=== PATIENT | female | born 1995 | race Caucasian/White ===

== ENCOUNTER 2018-08-25 09:31 | Emergency (ER) | payer OTHER ==
[2018-08-25 09:50] VITALS: RESP 16
[2018-08-25] MEDS ORDERED: SODIUM CHLORIDE 0.9% 1,000 ML IV STA ×2 (10:07→14:02)
[2018-08-25] MEDS ORDERED: ONDANSETRON 4 MG/2 ML VIAL IVP STA (10:07)
[2018-08-25] MEDS ORDERED: KETOROLAC 30 MG/ML 1 ML VIAL IVP STA (10:07)
[2018-08-25] MEDS ORDERED: FAMOTIDINE 20 MG/2 ML VIAL IV STA (10:11)
--- NOTE | 2018-08-25 10:27 | ED ---
Abdominal Pain HPI - General Chief Complaint: Abdominal Pain Stated Complaint: Abd Pain Time Seen by Provider: 08/25/18 09:55 Source: patient Mode of arrival: wheelchair Limitations: no limitations - History of Present Illness Initial Comments: Patient is a 23-year-old female presenting to the emergency department with severe epigastric abdominal pain 9 days. Patient states she went to another ER a few days ago and had a CT scan and ultrasound performed and states there was no acute abnormalities other than this is likely gastritis. Patient was given Carafate to help with symptoms. Patient states it helped yesterday but today it is not helping with the pain. Patient states she has been nauseous and vomiting for the last 9 days and not able to eat anything. Patient states she ate a little bit yesterday as she felt better but then this morning her pain is worse. Patient states she has had GI issues for the last 2 years with stomach pains and diarrhea. Patient states she has an appointment with the GI doctor tomorrow. Patient states she has had one , no other abdominal surgeries. Patient denies urinary complaints, fever, chills, chest pain. No other complaints at this time. - Related Data Previous Rx's Medication Instructions Recorded Lidocaine Viscous 2% [Xylocaine 5 ml PO Q4HR PRN #100 ml 08/25/18 Viscous] Metoclopramide [Reglan] 10 mg PO TID PRN #15 tab 08/25/18 Allergies Allergy/AdvReac Type Severity Reaction Status Date / Time No Known Allergies Allergy Verified 08/25/18 09:51 Review of Systems ROS Statement: Those systems with pertinent positive or pertinent negative responses have been documented in the HPI. ROS Other: All systems not noted in ROS Statement are negative. Past Medical History Additional Past Medical History / Comment(s): gastritis History of Any Multi-Drug Resistant Organisms: None Reported Past Surgical History: Tonsillectomy Additional Past Surgical History / Comment(s): csection Past Psychological History: No Psychological Hx Reported Smoking Status: Never smoker Past Alcohol Use History: None Reported Past Drug Use History: Marijuana General Exam - General Exam Comments Initial Comments: GENERAL: Patient is hunched over on the bed, holding her stomach, appears to be in pain.. HEAD: Atraumatic, normocephalic. EYES: Pupils equal round and reactive to light, extraocular movements intact, sclera anicteric, conjunctiva are normal. ENT: Nares patent, oropharynx clear without exudates. Moist mucous membranes. NECK: Normal range of motion, supple without lymphadenopathy or JVD. LUNGS: Breath sounds clear to auscultation bilaterally and equal. No wheezes rales or rhonchi. HEART: Regular rate and rhythm without murmurs, rubs or gallops. ABDOMEN: Tender to palpation in the epigastric area. Soft, normoactive bowel sounds. No guarding, no rebound. No masses appreciated. No CVA tenderness. : Deferred EXTREMITIES: Normal range of motion, no pitting or edema. No clubbing or cyanosis. NEUROLOGICAL: Cranial nerves II through XII grossly intact. Normal speech, normal gait. PSYCH: Normal mood, normal affect. SKIN: Warm, Dry, normal turgor, no rashes or lesions noted. Limitations: no limitations Course Vital Signs 08/25/18 08/25/18 08/25/18 09:48 14:13 15:42 Temperature 98 F 99.4 F Pulse Rate 72 57 L 65 Respiratory 16 16 16 Rate Blood Pressure 99/64 142/73 138/64 O2 Sat by Pulse 100 99 98 Oximetry Medical Decision Making - Medical Decision Making Patient is a 23-year-old female with complaints of abdominal pain 9 days. Patient states she was evaluated in the ER on Sunday and again on states she did have a computed tomography scan of the abdomen and ultrasound of her stomach and they diagnosed with a gastritis. Patient was prescribed Carafate which did help with the symptoms yesterday. Upon arrival patient was actively vomiting and in an extreme amount of pain. On exam patient has tenderness of the epigastric region. Rest of exam is within normal limits. Patient is afebrile upon arrival. CBC shows no signs of infection. Lactic acid came back at 5.2. The rest of CMP is within normal limits. UA is within normal limits. Lactic acid elevation is most likely due to dehydration. There is no signs of infection. Patient's nausea was controlled with Zofran and then Reglan. Patient was given Toradol and then GI cocktail for pain relief. Patient states she is still having some pain but it is improved. Patient was gi darwin 2 L bolus. Case discussed with Dr. Méndez who is in agreement the patient is stable to go home. It was discussed with patient to continue with Carafate and she will be also prescribed Viscous Lidocaine to help with pain relief. She will follow up with her GI doctor tomorrow. Return parameters were discussed with the patient she verbalizes understanding. - Lab Data Result diagrams: 08/25/18 10:28 08/25/18 10:28 Lab Results 08/25/18 08/25/18 08/25/18 Range/Units 10:28 10:28 10:28 WBC 9.2 (3.8-10.6) k/uL RBC 5.45 H (3.80-5.40) m/uL Hgb 15.4 (11.4-16.0) gm/dL Hct 45.5 (34.0-46.0) % MCV 83.5 (80.0-100.0) fL MCH 28.3 (25.0-35.0) pg MCHC 33.9 (31.0-37.0) g/dL RDW 12.8 (11.5-15.5) % Plt Count 307 (150-450) k/uL Neutrophils % 77 % Lymphocytes % 18 % Monocytes % 3 % Eosinophils % 1 % Basophils % 0 % Neutrophils # 7.1 (1.3-7.7) k/uL Lymphocytes # 1.6 (1.0-4.8) k/uL Monocytes # 0.3 (0-1.0) k/uL Eosinophils # 0.1 (0-0.7) k/uL Basophils # 0.0 (0-0.2) k/uL Sodium 142 (137-145) mmol/L Potassium 4.3 (3.5-5.1) mmol/L Chloride 107 (98-107) mmol/L Carbon Dioxide 20 L (22-30) mmol/L Anion Gap 15 mmol/L BUN 10 (7-17) mg/dL Creatinine 0.71 (0.52-1.04) mg/dL Est GFR (CKD-EPI)AfAm >90 (>60 ml/min/1.73 sqM) Est GFR (CKD-EPI)NonAf >90 (>60 ml/min/1.73 sqM) Glucose 131 H (74-99) mg/dL Lactic Ac Sepsis Rflx Plasma Lactic Acid Darwin (0.7-2.0) mmol/L Calcium 10.7 H (8.4-10.2) mg/dL Total Bilirubin 0.9 (0.2-1.3) mg/dL AST 50 H (14-36) U/L ALT 80 H (9-52) U/L Alkaline Phosphatase 47 (38-126) U/L Total Protein 8.3 H (6.3-8.2) g/dL Albumin 5.3 H (3.5-5.0) g/dL Amylase 56 (30-110) U/L Lipase 110 (23-300) U/L Urine Color Urine Appearance (Clear) Urine pH (5.0-8.0) Ur Specific [place] (1.001-1.035) Urine Protein (Negative) Urine Glucose (UA) (Negative) Urine Ketones (Negative) Urine Blood (Negative) Urine Nitrite (Negative) Urine Bilirubin (Negative) Urine Urobilinogen (<2.0) mg/dL Ur Leukocyte Esterase (Negative) Urine RBC (0-5) /hpf Urine WBC (0-5) /hpf Ur Squamous Epith Cells (0-4) /hpf Urine Bacteria (None) /hpf Urine Mucus (None) /hpf Urine HCG, Qual Not Detected (Not Detectd) 08/25/18 08/25/18 08/25/18 Range/Units 10:28 10:28 11:02 WBC (3.8-10.6) k/uL RBC (3.80-5.40) m/uL Hgb (11.4-16.0) gm/dL Hct (34.0-46.0) % MCV (80.0-100.0) fL MCH (25.0-35.0) pg MCHC (31.0-37.0) g/dL RDW (11.5-15.5) % Plt Count (150-450) k/uL Neutrophils % % Lymphocytes % % Monocytes % % Eosinophils % % Basophils % % Neutrophils # (1.3-7.7) k/uL Lymphocytes # (1.0-4.8) k/uL Monocytes # (0-1.0) k/uL Eosinophils # (0-0.7) k/uL Basophils # (0-0.2) k/uL Sodium (137-145) mmol/L Potassium (3.5-5.1) mmol/L Chloride (98-107) mmol/L Carbon Dioxide (22-30) mmol/L Anion Gap mmol/L BUN (7-17) mg/dL Creatinine (0.52-1.04) mg/dL Est GFR (CKD-EPI)AfAm (>60 ml/min/1.73 sqM) Est GFR (CKD-EPI)NonAf (>60 ml/min/1.73 sqM) Glucose (74-99) mg/dL Lactic Ac Sepsis Rflx Y Plasma Lactic Acid Darwin 5.2 H* (0.7-2.0) mmol/L Calcium (8.4-10.2) mg/dL Total Bilirubin (0.2-1.3) mg/dL AST (14-36) U/L ALT (9-52) U/L Alkaline Phosphatase (38-126) U/L Total Protein (6.3-8.2) g/dL Albumin (3.5-5.0) g/dL Amylase (30-110) U/L Lipase (23-300) U/L Urine Color Light Yellow Urine Appearance Clear (Clear) Urine pH 7.5 (5.0-8.0) Ur Specific [place] 1.010 (1.001-1.035) Urine Protein Negative (Negative) Urine Glucose (UA) Negative (Negative) Urine Ketones 1+ H (Negative) Urine Blood Negative (Negative) Urine Nitrite Negative (Negative) Urine Bilirubin Negative (Negative) Urine Urobilinogen <2.0 (<2.0) mg/dL Ur Leukocyte Esterase Small H (Negative) Urine RBC 1 (0-5) /hpf Urine WBC 2 (0-5) /hpf Ur Squamous Epith Cells 2 (0-4) /hpf Urine Bacteria Rare H (None) /hpf Urine Mucus Rare H (None) /hpf Urine HCG, Qual (Not Detectd) Disposition Clinical Impression: Abdominal pain, Gastritis Disposition: HOME SELF-CARE Condition: Stable Instructions (If sedation given, give patient instructions): Gastritis (ED), Abdominal Pain (ED) Additional Instructions: Please return to the Emergency Department if symptoms worsen or any other concerns. Follow-up with machine pack assembler tomorrow. Prescriptions: Metoclopramide [Reglan] 10 mg PO TID PRN #15 tab PRN Reason: GERD Lidocaine Viscous 2% [Xylocaine Viscous] 5 ml PO Q4HR PRN #100 ml PRN Reason: Pain Is patient prescribed a controlled substance at d/c from ED?: No Referrals: None,Stated [Primary Care Provider] - 1-2 days
[2018-08-25 10:37] LABS: Appearance,Urine Clear (Clear); Bacteria,Urine Rare /hpf; Bilirubin,Urine Negative (Negative); Blood,Urine Negative (Negative); Color,Urine Light Yellow; Glucose,Urine (UA) Negative (Negative); Ketones,Urine 1+ (Negative); Leukocyte Esterase,Urine Small (Negative); Mucus,Urine Rare /hpf; Nitrite,Urine Negative (Negative); PH, Urine 7.5 (5.0-8.0); Protein,Urine Negative (Negative); RBC,Urine 1 /hpf (0-5); Squamous Epithelial Cell,Urine 2 /hpf (0-4); Urobilinogen,Urine <2.0 mg/dL (<2.0)
[2018-08-25 10:47] LABS: Basophils % (A) 0 %; Eosinophils # (A) 0.1 k/uL (0-0.7); Eosinophils % (A) 1 %; HCT 45.5 % (34.0-46.0); HGB 15.4 gm/dL (11.4-16.0); Lymphocytes # (A) 1.6 k/uL (1.0-4.8); Lymphocytes % (A) 18 %; MCH 28.3 pg (25.0-35.0); MCHC 33.9 g/dL (31.0-37.0); MCV 83.5 fL (80.0-100.0); Mean Platelet Volume 8.1; Monocytes # (A) 0.3 k/uL (0-1.0); Monocytes % (A) 3 %; Neutrophils # (A) 7.1 k/uL (1.3-7.7); Neutrophils % (A) 77 %; Platelet Count 307 k/uL (150-450); RBC 5.45 m/uL (3.80-5.40); RDW 12.8 % (11.5-15.5); WBC 9.2 k/uL (3.8-10.6)
[2018-08-25 10:48] LABS: ALT 80 U/L (9-52); AST 50 U/L (14-36); African American GFR (CKD) >90 (>60 ml/min/1.73 sqM); Albumin 5.3 g/dL (3.5-5.0); Alkaline Phosphatase 47 U/L (38-126); Amylase 56 U/L (30-110); Anion Gap 15 mmol/L; Blood Urea Nitrogen 10 mg/dL (7-17); Calcium 10.7 mg/dL (8.4-10.2); Carbon Dioxide 20 mmol/L (22-30); Chloride 107 mmol/L (98-107); Glucose 131 mg/dL (74-99); Lipase 110 U/L (23-300); Potassium 4.3 mmol/L (3.5-5.1); Sodium 142 mmol/L (137-145); Total Bilirubin 0.9 mg/dL (0.2-1.3); Total Protein 8.3 g/dL (6.3-8.2)
[2018-08-25] MEDS ORDERED: METOCLOPRAMIDE 5 MG/ML 2 ML VIAL IVP STA (11:02)
--- NOTE | 2018-08-25 12:18 | CT ---
EXAMINATION TYPE: CT abdomen pelvis w con DATE OF EXAM: 08/25/2018 REFERENCE: NONE HISTORY: Pain HISTORY: vomiting, mid abd pain REFERENCE: NONE CT DLP: 1588.9 mGy Automated exposure control for dose reduction was used. TECHNIQUE: Helical acquisition through the abdomen and pelvis was obtained following the oral ingesti on of without Oral Contrast and following intravenous administration of 100 mL of Isovue 300. The [place] a was reformatted in axial, coronal and sagittal projections. FINDINGS: Visualized portions of the lungs are clear. There is no pleural or pericardial fluid. The heart is not enlarged. Within the abdomen, the liver is enlarged measuring 22 cm. It is low in attenuation and likely fatty infiltrated. The spleen and gallbladder are normal. Both adrenal glands are normal. Both kidneys demonstrate function and appear morphologically normal. Pancreas is unremarkable. There is no significant retroperitoneal, iliac or inguinal adenopathy. The bladder is unremarkable. Uterus and ovaries are unremarkable. There is no significant diverticular change and there is no radiographic evidence of diverticulitis. The appendix is normal. Small bowel loops are normal. There is no free fluid and no free air identified. No osseous lesion is seen. IMPRESSION: 1. HEPATOMEGALY AND FATTY INFILTRATION OF THE LIVER. 2. NORMAL APPENDIX. 3. NO ACUTE INFLAMMATORY ABNORMALITY.
[2018-08-25] MEDS ORDERED: MAG HYDROX/AL HYDROX/SIMETH 30 ML, HYOSCYAMINE ELIXIR 10 ML, CIMETIDINE HCL 300 MG, LID... PO STA ×4 (12:26)
[2018-08-25 15:44] VITALS: BP 138/64; PULSE 65; TEMP 99.4
== END 2018-08-25 15:42 | disposition home or self-care (01) ==
LOC: EC 09:31
DX: K29.70 Gastritis, unspecified, without bleeding (principal); R19.7 Diarrhea, unspecified; Z98.890 Other specified postprocedural states
CPT/HCPCS: 36415; 80053; 82150; 83605; 83690; 85025; 81001; 81025; 74177; 99284; 96374; 96375 ×3; 96361 ×6; J2765; J2405; J1885; Q9967

== ENCOUNTER 2018-08-29 11:46 | Day surgery (SDC) | payer OTHER ==
[2018-08-28 10:31] VITALS: BMI 39.1
[~2018-08-29 11:46] MED LIST: LACTATED RINGERS 1,000 ML IV SCH
[2018-08-29 12:34] VITALS: RESP 16; TEMP 97.3
[2018-08-29] MEDS ORDERED: LIDOCAINE 1% 20 ML VIAL (10MG/ML) FOR IV START INTRADERMA ONE (12:38)
[2018-08-29] MEDS ORDERED: MIDAZOLAM 2 MG/2 ML VIAL ONE (13:35)
[2018-08-29] MEDS ORDERED: PROPOFOL 10 MG/ML 20 ML VIAL IV ONE (13:35)
[2018-08-29] MEDS ORDERED: fentaNYL (PF) 50 MCG/ML 2 ML AMP ONE (13:35)
[2018-08-29] MEDS ORDERED: LIDOCAINE 1% INJ 10MG/ML (20 ML MDV) ONE (13:35)
--- NOTE | 2018-08-29 14:08 | P.PCN ---
Date of Procedure: 08/29/18 Description of Procedure: BRIEF HISTORY: Patient is a 23-year-old, pleasant, now patient presents for outpatient upper endoscopy. The patient reports epigastric abdominal pain occurring chronically over the past few years but worse over the past 2 weeks. She reports associated symptoms of morning nausea, globus sensation and episodes of vomiting. Denies any pauline reflux. Symptoms improved on Prilosec and now on Protonix and Carafate. No prior EGD reported. PROCEDURE PERFORMED: Esophagogastroduodenoscopy with biopsy. PREOPERATIVE DIAGNOSIS: Epigastric abdominal pain. ESTIMATED BLOOD LOSS: Minimal. IV sedation per anesthesia. PROCEDURE: After informed consent was obtained, the patient was brought into the endoscopy unit. IV sedation was administered by Anesthesia under continuous monitoring. Initially the Olympus GIF-190 video endoscope was inserted into the mouth. Esophagus intubated without any difficulty. It was gradually advanced into the stomach and duodenum and carefully examined. The bulb and the second part of the duodenum appeared normal, with biopsies taken. The scope at this time was withdrawn to the stomach, adequately insufflated with air, and upon careful examination, mucosa of the antrum, body, cardia and the fundus appeared normal, except for scattered erythema in the antrum and body suggestive of gastritis biopsies taken. The scope was then withdrawn into the esophagus. The GE junction was located at 40 cm from the incisors with biopsies taken. The esophagus appeared normal. There were no erosions or ulcerations seen and the patient tolerated the procedure well. IMPRESSION: 1. Gastritis antrum body, biopsied. 2. GE junction biopsy. 3. Duodenal biopsy. RECOMMENDATIONS: The findings of this examination were discussed with the patient. Await pathology from biopsies. Continue Protonix therapy. Okay to resume diet.
[2018-08-29 14:34] VITALS: BP 120/74; PULSE 63
== END 2018-08-29 14:59 | disposition home or self-care (01) ==
LOC: ORWHC2ENDO 11:46
PROVIDERS: ATTEND Internal Medicine
DX: K29.50 Unspecified chronic gastritis without bleeding (principal); Z79.899 Other long term (current) drug therapy
CPT/HCPCS: 81025; 43239; J2250; J2001; J3010; J2704; 88305

== ENCOUNTER 2018-11-13 09:07 | Emergency (ER) | payer OTHER ==
[2018-11-13 10:11] LABS: HCT 45.8 % (34.0-46.0); MCH 29.7 pg (25.0-35.0); MCHC 34.9 g/dL (31.0-37.0); MCV 84.9 fL (80.0-100.0); Mean Platelet Volume 7.3; Platelet Count 366 k/uL (150-450); RDW 12.6 % (11.5-15.5); WBC 16.8 k/uL (3.8-10.6)
[2018-11-13 10:23] LABS: ALT 59 U/L (9-52); AST 28 U/L (14-36); African American GFR (CKD) >90 (>60 ml/min/1.73 sqM); Albumin 5.4 g/dL (3.5-5.0); Alkaline Phosphatase 52 U/L (38-126); Amylase 79 U/L (30-110); Anion Gap 17 mmol/L; Blood Urea Nitrogen 12 mg/dL (7-17); Carbon Dioxide 21 mmol/L (22-30); Chloride 103 mmol/L (98-107); Glucose 138 mg/dL (74-99); Potassium 3.7 mmol/L (3.5-5.1); Sodium 141 mmol/L (137-145); Total Bilirubin 0.7 mg/dL (0.2-1.3); Total Protein 8.7 g/dL (6.3-8.2)
[2018-11-13 10:29] LABS: Appearance,Urine Cloudy (Clear); Bacteria,Urine Rare /hpf; Bilirubin,Urine Negative (Negative); Blood,Urine Small (Negative); Color,Urine Yellow; Glucose,Urine (UA) Negative (Negative); Ketones,Urine 2+ (Negative); Leukocyte Esterase,Urine Negative (Negative); Mucus,Urine Many /hpf; Nitrite,Urine Negative (Negative); PH, Urine 5.5 (5.0-8.0); Protein,Urine 2+ (Negative); RBC,Urine 1 /hpf (0-5); Specific Gravity,Urine 1.025 (1.001-1.035); Squamous Epithelial Cell,Urine 4 /hpf (0-4); Urobilinogen,Urine <2.0 mg/dL (<2.0); WBC,Urine 3 /hpf (0-5)
[2018-11-13] MEDS ORDERED: PANTOPRAZOLE 40 MG/10 ML VIAL IVP STA (10:29)
[2018-11-13] MEDS ORDERED: KETOROLAC 30 MG/ML 1 ML VIAL IVP STA (10:30)
[2018-11-13 10:36] LABS: Anisocytosis (M) Present; Lymphocytes # (M) 1.18 k/uL (1.0-4.8); Monocytes # (M) 0.34 k/uL (0-1.0); Neutrophils % (M) 91 %; Nucleated Red Blood Cells 0 /100 WBC (0-0); Poikilocytosis (M) Present; Total Cells Counted 100
--- NOTE | 2018-11-13 11:44 | US ---
EXAMINATION TYPE: US gallbladder DATE OF EXAM: 11/13/2018 COMPARISON: NONE CLINICAL HISTORY: pain. RUQ pain nausea and vomiting. EXAM MEASUREMENTS: Liver Length: 16.2 cm Gallbladder Wall: .2 cm CBD: .4 cm Right Kidney: 12.0 x 4.0 x 5.1 cm Pancreas: Limited by overlying bowel gas. Liver: Increased attenuation Gallbladder: wnl Evidence for sonographic Dennison's sign: No CBD: wnl Right Kidney: wnl IMPRESSION: 1. No evidence of cholelithiasis. 2. Nonspecific pattern to the liver can be seen with hepatic steatosis or hepatocellular disease subhash elate with liver function studies.
--- NOTE | 2018-11-13 12:15 | CT ---
EXAMINATION TYPE: CT abdomen pelvis w con DATE OF EXAM: 11/13/2018 COMPARISON: CT 08/25/2018, ultrasound 11/13/2018 HISTORY: abdominal pain/vomitting CT DLP: 1937.5 mGycm Automated exposure control for dose reduction was used. TECHNIQUE: Helical acquisition of images from the lung bases through the pelvis have been completed. CONTRAST: Performed without Oral Contrast and with IV Contrast, patient injected with 100 ml mL of Isovue 300. FINDINGS: LUNG BASES: No significant abnormality is appreciated. AORTA: No significant abnormality is appreciated. LIVER/GB: No significant interval change is appreciated. Findings compatible with hepatic steatosis, there is hepatomegaly PANCREAS: No significant abnormality is seen. SPLEEN: No significant abnormality is seen. ADRENALS: No significant abnormality is seen. KIDNEYS: No significant abnormality is seen. REPRODUCTIVE ORGANS: No significant abnormality is seen. Minimal fluid in the cul-de-sac is likely ph ysiologic. BOWEL: No significant abnormality is seen. Appendix is normal. FREE AIR: No Free Air visible. ASCITES: None visible. PELVIC ADENOPATHY: None visualized. RETROPERITONEAL ADENOPATHY: No Retroperitoneal Adenopathy visible. URINARY BLADDER: No significant abnormality is seen. OSSEOUS STRUCTURES: No significant abnormality is seen. IMPRESSION: No interval change is evident. No significant abnormality to account for patient's sympto ms.
[2018-11-13] MEDS ORDERED: FAMOTIDINE 20 MG TAB PO STA (12:48)
[2018-11-13] MEDS ORDERED: LIDOCAINE VISCOUS 2% 15 ML CUP MUCOUS MEM ONE (12:48)
[2018-11-13] MEDS ORDERED: MORPHINE SULFATE 4 MG/ML SYRINGE IVP STA (13:36)
--- NOTE | 2018-11-13 14:39 | ED ---
Abdominal Pain HPI - General Chief Complaint: Abdominal Pain Stated Complaint: abdominal pain/vomiting Source: patient Mode of arrival: wheelchair Limitations: no limitations - History of Present Illness Initial Comments: The patient is a 23-year-old female who presents emergency Department with reported epigastric abdominal pain. She describes it as a burning sensation in her left upper quadrant. Reports that she has had a history of similar past. She had an endoscopy performed in August which demonstrated gastritis. She states she's been taking her Pepcid, Prilosec and Carafate as home as directed however her pain persists. It has been severe for the past week. States that every time she eats or drinks, she will vomit. She denies any hemoptysis. No hematemesis. She denies any chest pain or shortness of breath. No fevers or chills. Does admit to dysuria with an odor. Reports diarrhea. no melanotic stools or hematochezia. Denies any abnormal vaginal bleeding or discharge. Denies concern for as she has had an ablation. She states she has not followed up with her GI doctor. No ripping or tearing sensation to her back. Denies any back or flank pain. There are no alleviating, precipitating or modifying factors - Related Data Home Medications Medication Instructions Recorded Confirmed Famotidine [Pepcid] 20 mg PO BID 08/28/18 11/13/18 Pantoprazole Sodium [Protonix] 40 mg PO DAILY 08/28/18 11/13/18 Sucralfate [Carafate] 1 gm PO ACHS 08/28/18 11/13/18 Acetaminophen Tab [Tylenol] 500 mg PO Q6H PRN 11/13/18 11/13/18 Previous Rx's Medication Instructions Recorded Cephalexin [Keflex] 500 mg PO Q12HR #10 cap 11/13/18 Famotidine [Pepcid] 20 mg PO BID #28 tablet 11/13/18 Hydrocodone/Acetaminophen [[place] 1 tab PO Q6HR PRN 3 Days #12 tab 11/13/18 5-325] Ondansetron Odt [Zofran Odt] 4 mg PO Q8HR PRN #15 tab 11/13/18 Pantoprazole Sodium [Protonix] 40 mg PO DAILY #30 tablet. 11/13/18 Sucralfate [Carafate] 1 gm PO ACHS #56 tablet 11/13/18 Allergies Allergy/AdvReac Type Severity Reaction Status Date / Time No Known Allergies Allergy Verified 11/13/18 10:16 Review of Systems ROS Statement: Those systems with pertinent positive or pertinent negative responses have been documented in the HPI. ROS Other: All systems not noted in ROS Statement are negative. Past Medical History Additional Past Medical History / Comment(s): gastritis History of Any Multi-Drug Resistant Organisms: None Reported Past Surgical History: Tonsillectomy Additional Past Surgical History / Comment(s): csection Past Anesthesia/Blood Transfusion Reactions: No Reported Reaction, Motion Sickness Additional Past Anesthesia/Blood Transfusion Reaction / Comment(s): no hx blood transfusion Past Psychological History: No Psychological Hx Reported Smoking Status: Current some day smoker Past Alcohol Use History: None Reported Past Drug Use History: Marijuana - Past Family History Mother Family Medical History: No Reported History General Exam Limitations: no limitations Course Vital Signs 11/13/18 11/13/18 11/13/18 09:08 10:00 10:30 Temperature 98.3 F Pulse Rate 105 H 65 69 Respiratory 20 18 18 Rate Blood Pressure 100/65 141/101 138/70 O2 Sat by Pulse 97 98 99 Oximetry 11/13/18 11/13/18 11/13/18 10:43 11:00 13:04 Temperature 98.4 F Pulse Rate 61 62 69 Respiratory 18 18 18 Rate Blood Pressure 125/71 125/71 131/91 O2 Sat by Pulse 98 98 100 Oximetry 11/13/18 14:55 Temperature 98.1 F Pulse Rate 84 Respiratory 16 Rate Blood Pressure 122/62 O2 Sat by Pulse 97 Oximetry Medical Decision Making - Medical Decision Making Upon arrival the patient is placed in room 17. A thorough history and physical exam was performed. Peripheral IV was established. I did recommend laboratory studies and a CT of the patient's abdomen and pelvis. Also commended a gb ultrasound. Laboratory studies demonstrated white blood cell count of 16.8. Chemistries show an ALT of 59. Urinalysis is positive for 2+ protein, 2+ ketones, small blood, rare bacteria and many mucus. I did provide the patient with a dose of Protonix and Toradol. She is reevaluated and states that she has had no improvement in her reflux. I therefore provided the patient with a dose of Pepcid and viscous lidocaine. She is sent over for CT for abdomen and pel vis which demonstrates no interval change. GB ultrasound demonstrates no evidence of cholelithiasis. I reevaluated the patient she is requesting something stronger for pain. I do provide her with 4 mg of morphine at this time. I then into the room to evaluate the patient. She is sitting eating and drinking. She states that her pain has completely resolved. She is requesting morphine to go home with. I informed the patient that I cannot provide her with a prescription for this. She is requesting something similar. I did inform her that I could give her a small prescription for [place] however this is only to bridge her to her appointment with the GI physician. The patient understood. I will also give her a prescription for Zofran. The patient is requesting refills of all her occasions. I did give her prescription for Pepcid, Prilosec and Carafate. As the patient is reporting a urine odor and she does have an abnormal UA. I will treat her with an antibiotic. I provided her with information for Dr. Barnes office. She is to call and make an appointment. I did inform her she may need a repeat scope. The patient understood this. If she has any new or worsening symptoms she should return to the emergency room. Patient was discharged home in stable condition - Lab Data Result diagrams: 11/13/18 09:50 11/13/18 09:50 Lab Results 11/13/18 11/13/18 11/13/18 Range/Units 09:50 09:50 09:50 WBC 16.8 H (3.8-10.6) k/uL RBC 5.40 (3.80-5.40) m/uL Hgb 16.0 (11.4-16.0) gm/dL Hct 45.8 (34.0-46.0) % MCV 84.9 (80.0-100.0) fL MCH 29.7 (25.0-35.0) pg MCHC 34.9 (31.0-37.0) g/dL RDW 12.6 (11.5-15.5) % Plt Count 366 (150-450) k/uL Neutrophils % (Manual) 91 % Lymphocytes % (Manual) 7 % Monocytes % (Manual) 2 % Neutrophils # (Manual) 15.29 H (1.3-7.7) k/uL Lymphocytes # (Manual) 1.18 (1.0-4.8) k/uL Monocytes # (Manual) 0.34 (0-1.0) k/uL Nucleated RBCs 0 (0-0) /100 WBC Poikilocytosis (manual Present Anisocytosis (manual) Present Sodium 141 (137-145) mmol/L Potassium 3.7 (3.5-5.1) mmol/L Chloride 103 (98-107) mmol/L Carbon Dioxide 21 L (22-30) mmol/L Anion Gap 17 mmol/L BUN 12 (7-17) mg/dL Creatinine 0.62 (0.52-1.04) mg/dL Est GFR (CKD-EPI)AfAm >90 (>60 ml/min/1.73 sqM) Est GFR (CKD-EPI)NonAf >90 (>60 ml/min/1.73 sqM) Glucose 138 H (74-99) mg/dL Calcium 11.0 H (8.4-10.2) mg/dL Total Bilirubin 0.7 (0.2-1.3) mg/dL AST 28 (14-36) U/L ALT 59 H (9-52) U/L Alkaline Phosphatase 52 (38-126) U/L Total Protein 8.7 H (6.3-8.2) g/dL Albumin 5.4 H (3.5-5.0) g/dL Amylase 79 (30-110) U/L Lipase 213 (23-300) U/L Urine Color Yellow Urine Appearance Cloudy H (Clear) Urine pH 5.5 (5.0-8.0) Ur Specific [place] 1.025 (1.001-1.035) Urine Protein 2+ H (Negative) Urine Glucose (UA) Negative (Negative) Urine Ketones 2+ H (Negative) Urine Blood Small H (Negative) Urine Nitrite Negative (Negative) Urine Bilirubin Negative (Negative) Urine Urobilinogen <2.0 (<2.0) mg/dL Ur Leukocyte Esterase Negative (Negative) Urine RBC 1 (0-5) /hpf Urine WBC 3 (0-5) /hpf Ur Squamous Epith Cells 4 (0-4) /hpf Urine Bacteria Rare H (None) /hpf Urine Mucus Many H (None) /hpf Urine HCG, Qual (Not Detectd) 10/09/19 Range/Units 09:50 WBC (3.8-10.6) k/uL RBC (3.80-5.40) m/uL Hgb (11.4-16.0) gm/dL Hct (34.0-46.0) % MCV (80.0-100.0) fL MCH (25.0-35.0) pg MCHC (31.0-37.0) g/dL RDW (11.5-15.5) % Plt Count (150-450) k/uL Neutrophils % (Manual) % Lymphocytes % (Manual) % Monocytes % (Manual) % Neutrophils # (Manual) (1.3-7.7) k/uL Lymphocytes # (Manual) (1.0-4.8) k/uL Monocytes # (Manual) (0-1.0) k/uL Nucleated RBCs (0-0) /100 WBC Poikilocytosis (manual Anisocytosis (manual) Sodium (137-145) mmol/L Potassium (3.5-5.1) mmol/L Chloride (98-107) mmol/L Carbon Dioxide (22-30) mmol/L Anion Gap mmol/L BUN (7-17) mg/dL Creatinine (0.52-1.04) mg/dL Est GFR (CKD-EPI)AfAm (>60 ml/min/1.73 sqM) Est GFR (CKD-EPI)NonAf (>60 ml/min/1.73 sqM) Glucose (74-99) mg/dL Calcium (8.4-10.2) mg/dL Total Bilirubin (0.2-1.3) mg/dL AST (14-36) U/L ALT (9-52) U/L Alkaline Phosphatase (38-126) U/L Total Protein (6.3-8.2) g/dL Albumin (3.5-5.0) g/dL Amylase (30-110) U/L Lipase (23-300) U/L Urine Color Urine Appearance (Clear) Urine pH (5.0-8.0) Ur Specific [place] (1.001-1.035) Urine Protein (Negative) Urine Glucose (UA) (Negative) Urine Ketones (Negative) Urine Blood (Negative) Urine Nitrite (Negative) Urine Bilirubin (Negative) Urine Urobilinogen (<2.0) mg/dL Ur Leukocyte Esterase (Negative) Urine RBC (0-5) /hpf Urine WBC (0-5) /hpf Ur Squamous Epith Cells (0-4) /hpf Urine Bacteria (None) /hpf Urine Mucus (None) /hpf Urine HCG, Qual Not Detected (Not Detectd) Disposition Clinical Impression: Epigastric abdominal pain, Urinary tract infection, Leukocytosis, History of gastritis Disposition: HOME SELF-CARE Condition: Stable Instructions (If sedation given, give patient instructions): Abdominal Pain (ED) Additional Instructions: Please follow-up with Dr. Barnes within one week. You may need a repeat endoscopy. Take the medications as prescribed. Return to the emergency room for any new or worsening symptoms Prescriptions: Sucralfate [Carafate] 1 gm PO ACHS #56 tablet Cephalexin [Keflex] 500 mg PO Q12HR #10 cap Hydrocodone/Acetaminophen [[place] 5-325] 1 tab PO Q6HR PRN 3 Days #12 tab PRN Reason: Pain Famotidine [Pepcid] 20 mg PO BID #28 tablet Pantoprazole Sodium [Protonix] 40 mg PO DAILY #30 tablet. Ondansetron Odt [Zofran Odt] 4 mg PO Q8HR PRN #15 tab PRN Reason: Vomiting Is patient prescribed a controlled substance at d/c from ED?: Yes When asked, does pt state using other controlled substances?: No If prescribed controlled substance>3 days was MAPS reviewed?: Prescribed <3 Days If opioid is for acute pain is fill amount 7 days or less?: Yes If Rx opioid, was Start Talking consent form obtained?: Yes Referrals: None,Stated [Primary Care Provider] - 1-2 days Ivan Barnes MD [STAFF PHYSICIAN] - 1-2 days Time of Disposition: 14:39
[2018-11-13 14:55] VITALS: BP 122/62; PULSE 84; RESP 16; TEMP 98.1
--- NOTE | 2018-11-16 00:52 | CDI ---
Dear Silvia Choudhury DO: Please do addendum Physical Examination. Thank you, Lyly Hernandez, [employer] Lab Technician. If you have any questions, please contact Vice President Of Communications at [phone]. [facility]
== END 2018-11-13 14:56 | disposition home or self-care (01) ==
LOC: EC 09:07
DX: N39.0 Urinary tract infection, site not specified (principal); R10.13 Epigastric pain; Z87.19 Personal history of other diseases of the digestive system; Z76.0 Encounter for issue of repeat prescription; R11.10 Vomiting, unspecified; R19.7 Diarrhea, unspecified; R10.12 Left upper quadrant pain; F17.200 Nicotine dependence, unspecified, uncomplicated; Z79.899 Other long term (current) drug therapy
CPT/HCPCS: 99284; 96374; 96375 ×2; 36415; 80053; 82150; 83690; 85025; 81001; 81025; 76705; 74177; J2270; J1885; C9113; Q9967

== ENCOUNTER 2021-06-01 09:10 | Emergency (ER) | payer OTHER ==
[2021-06-01] MEDS ORDERED: ONDANSETRON 4 MG/2 ML VIAL IVP STA (10:16)
[2021-06-01] MEDS ORDERED: MORPHINE SULFATE 4 MG/ML SYRINGE IV STA (10:16)
[2021-06-01] MEDS ORDERED: PANTOPRAZOLE 40 MG/10 ML VIAL IVP STA (10:16)
[2021-06-01] MEDS ORDERED: SODIUM CHLORIDE 0.9% 2,000 ML IV STA (10:16)
[2021-06-01] MEDS ORDERED: MAG HYDROX/AL HYDROX/SIMETH 30 ML, HYOSCYAMINE ELIXIR 10 ML, LIDOCAINE VISCOUS 2% 10 ML PO STA ×3 (10:17)
--- NOTE | 2021-06-01 10:26 | ED ---
General Adult HPI - General Chief complaint: Abdominal Pain Stated complaint: NVD Time Seen by Provider: 06/01/21 10:01 Source: patient Mode of arrival: ambulatory Limitations: no limitations - History of Present Illness Initial comments: This 26-year-old female with a past medical history of chronic GI abdominal pain presents emergency Department with abdominal pain, nausea, vomiting and diarrhea 3 days. Patient states she does have GI doctor but they are unable to get her in until next week so she presented here. Patient states she has been exp eriencing generalized abdominal pain along with nausea and vomiting 3 days and began to experience diarrhea yesterday. Patient states she is currently prescribed protonix and famotidine, however she states she is been unable to keep this down. She states she does have a prescription for Zofran that she is going to pick up worker today. Patient states she has been able to keep a little bit of fluid down but denies being able to keep any solids or food down over the last couple of days as she has no appetite. Patient states her pain is currently 9/10. Patient states over the last 2 days she has also experienced some nasal congestion but denies any sore throat or cough. Patient denies any fever, chest pain, shortness of breath, change in bladder, lightheadedness, dizziness, headache. - Related Data Home Medications Medication Instructions Recorded Confirmed Albuterol Sulfate [Ventolin HFA] 2 puff INHALATION RT-Q4H 06/01/21 06/01/21 Dicyclomine [Bentyl] 10 mg PO QID 06/01/21 06/01/21 Famotidine [Pepcid] 20 mg PO HS 06/01/21 06/01/21 Pantoprazole Sodium [Protonix] 40 mg PO AC-BID 06/01/21 06/01/21 Allergies Allergy/AdvReac Type Severity Reaction Status Date / Time No Known Allergies Allergy Verified 06/01/21 11:00 Review of Systems ROS Statement: Those systems with pertinent positive or pertinent negative responses have been documented in the HPI. ROS Other: All systems not noted in ROS Statement are negative. Past Medical History Additional Past Medical History / Comment(s): gastritis History of Any Multi-Drug Resistant Organisms: None Reported Past Surgical History: Tonsillectomy Additional Past Surgical History / Comment(s): csection Past Anesthesia/Blood Transfusion Reactions: No Reported Reaction, Motion Sickness Additional Past Anesthesia/Blood Transfusion Reaction / Comment(s): no hx blood transfusion Past Psychological History: No Psychological Hx Reported Smoking Status: Never smoker Past Alcohol Use History: None Reported Past Drug Use History: Marijuana - Past Family History Mother Family Medical History: No Reported History General Exam Limitations: no limitations General appearance: alert, in no apparent distress Head exam: Present: atraumatic, normocephalic, normal inspection Eye exam: Present: normal appearance, PERRL, EOMI. Absent: scleral icterus, conjunctival injection, periorbital swelling Pupils: Present: normal accommodation ENT exam: Present: normal exam, mucous membranes moist Neck exam: Present: normal inspection, full ROM. Absent: tenderness, meningismus, lymphadenopathy Respiratory exam: Present: normal lung sounds bilaterally. Absent: respiratory distress, wheezes, rales, rhonchi, stridor, chest wall tenderness Cardiovascular Exam: Present: regular rate, normal rhythm, normal heart sounds. Absent: systolic murmur, diastolic murmur, rubs, gallop, clicks GI/Abdominal exam: Present: soft, tenderness (Generalized tenderness to deep palpation in all quadrants; no one quadrant more tender to palpation in others. Negative Rovsing's, negative Dennison's sign, negative McBurney's point), normal bowel sounds. Absent: distended, guarding, rebound, rigid Extremities exam: Present: normal inspection, full ROM, normal capillary refill. Absent: tenderness, pedal edema, joint swelling, calf tenderness Back exam: Present: normal inspection, full ROM. Absent: CVA tenderness (R), CVA tenderness (L), paraspinal tenderness, vertebral tenderness Neurological exam: Present: alert, oriented X3, CN II-XII intact, normal gait Psychiatric exam: Present: normal affect, normal mood Skin exam: Present: warm, dry, intact, normal color. Absent: rash Course Vital Signs 06/01/21 06/01/21 09:35 11:39 Temperature 97.7 F Pulse Rate 80 84 Respiratory 20 20 Rate Blood Pressure 133/80 125/73 O2 Sat by Pulse 99 98 Oximetry Medical Decision Making - Medical Decision Making This 26-year-old female with a past medical history of chronic GI pain presents emergency Department with generalized abdominal pain, nausea, vomiting and diarrhea 3 days. With blood cell count 11.6, coagulation unremarkable, pleasant lactic acid 2.6- 2 L normal saline given through IV. Patient with AST 38 and ALP 76 (80 in 2019) without any right upper quadrant pain or tenderness to palpation Urine hCG not detected. Rotavirus, influenza A/B all negative. Patient does have prescription for Zofran at home along with Protonix and famotidine. Patient does have a scheduled appointment for GI next week which I did instruct her to present to. Prior to discharge patient states her pain was down to 4-5/10. Instructed patient to follow-up with primary care provider. Strict return precautions were discussed. Patient verbally agreed to plan. Patient sent home in stable condition. Case discussed in detail my attending, - Lab Data Result diagrams: 06/01/21 10:35 06/01/21 10:35 Lab Results 06/01/21 06/01/21 06/01/21 Range/Units 10:35 10:35 10:35 WBC 11.6 H (3.8-10.6) k/uL RBC 5.13 (3.80-5.40) m/uL Hgb 14.8 (11.4-16.0) gm/dL Hct 44.2 (34.0-46.0) % MCV 86.2 (80.0-100.0) fL MCH 28.9 (25.0-35.0) pg MCHC 33.5 (31.0-37.0) g/dL RDW 11.9 (11.5-15.5) % Plt Count 376 (150-450) k/uL MPV 8.2 Neutrophils % 77 % Lymphocytes % 18 % Monocytes % 3 % Eosinophils % 0 % Basophils % 1 % Neutrophils # 9.0 H (1.3-7.7) k/uL Lymphocytes # 2.1 (1.0-4.8) k/uL Monocytes # 0.4 (0-1.0) k/uL Eosinophils # 0.0 (0-0.7) k/uL Basophils # 0.1 (0-0.2) k/uL PT 10.6 (9.0-12.0) sec INR 1.0 (<1.2) APTT 24.9 (22.0-30.0) sec Sodium (137-145) mmol/L Potassium (3.5-5.1) mmol/L Chloride (98-107) mmol/L Carbon Dioxide (22-30) mmol/L Anion Gap mmol/L BUN (7-17) mg/dL Creatinine (0.52-1.04) mg/dL Est GFR (CKD-EPI)AfAm (>60 ml/min/1.73 sqM) Est GFR (CKD-EPI)NonAf (>60 ml/min/1.73 sqM) Glucose (74-99) mg/dL Plasma Lactic Acid John (0.7-2.0) mmol/L Calcium (8.4-10.2) mg/dL Total Bilirubin (0.2-1.3) mg/dL AST (14-36) U/L ALT (4-34) U/L Alkaline Phosphatase (38-126) U/L Total Protein (6.3-8.2) g/dL Albumin (3.5-5.0) g/dL Amylase (30-110) U/L Lipase (23-300) U/L Urine Color Light Yellow Urine Appearance Cloudy H (Clear) Urine pH 7.5 (5.0-8.0) Ur Specific [place] 1.009 (1.001-1.035) Urine Protein Negative (Negative) Urine Glucose (UA) Negative (Negative) Urine Ketones 1+ H (Negative) Urine Blood Negative (Negative) Urine Nitrite Negative (Negative) Urine Bilirubin Negative (Negative) Urine Urobilinogen <2.0 (<2.0) mg/dL Ur Leukocyte Esterase Negative (Negative) Urine RBC <1 (0-5) /hpf Urine WBC <1 (0-5) /hpf Ur Squamous Epith Cells 27 H (0-4) /hpf Urine Mucus Rare H (None) /hpf Urine HCG, Qual (Not Detectd) Coronavirus (PCR) (Not Detectd) Influenza Type A RNA (Not Detectd) Influenza Type B (PCR) (Not Detectd) 06/01/21 06/01/21 06/01/21 Range/Units 10:35 10:35 10:35 WBC (3.8-10.6) k/uL RBC (3.80-5.40) m/uL Hgb (11.4-16.0) gm/dL Hct (34.0-46.0) % MCV (80.0-100.0) fL MCH (25.0-35.0) pg MCHC (31.0-37.0) g/dL RDW (11.5-15.5) % Plt Count (150-450) k/uL MPV Neutrophils % % Lymphocytes % % Monocytes % % Eosinophils % % Basophils % % Neutrophils # (1.3-7.7) k/uL Lymphocytes # (1.0-4.8) k/uL Monocytes # (0-1.0) k/uL Eosinophils # (0-0.7) k/uL Basophils # (0-0.2) k/uL PT (9.0-12.0) sec INR (<1.2) APTT (22.0-30.0) sec Sodium 137 (137-145) mmol/L Potassium 4.0 (3.5-5.1) mmol/L Chloride 104 (98-107) mmol/L Carbon Dioxide 22 (22-30) mmol/L Anion Gap 11 mmol/L BUN 8 (7-17) mg/dL Creatinine 0.69 (0.52-1.04) mg/dL Est GFR (CKD-EPI)AfAm >90 (>60 ml/min/1.73 sqM) Est GFR (CKD-EPI)NonAf >90 (>60 ml/min/1.73 sqM) Glucose 128 H (74-99) mg/dL Plasma Lactic Acid John 2.6 H* (0.7-2.0) mmol/L Calcium 9.8 (8.4-10.2) mg/dL Total Bilirubin 0.9 (0.2-1.3) mg/dL AST 38 H (14-36) U/L ALT 76 H (4-34) U/L Alkaline Phosphatase 49 (38-126) U/L Total Protein 8.0 (6.3-8.2) g/dL Albumin 4.9 (3.5-5.0) g/dL Amylase 64 (30-110) U/L Lipase 138 (23-300) U/L Urine Color Urine Appearance (Clear) Urine pH (5.0-8.0) Ur Specific [place] (1.001-1.035) Urine Protein (Negative) Urine Glucose (UA) (Negative) Urine Ketones (Negative) Urine Blood (Negative) Urine Nitrite (Negative) Urine Bilirubin (Negative) Urine Urobilinogen (<2.0) mg/dL Ur Leukocyte Esterase (Negative) Urine RBC (0-5) /hpf Urine WBC (0-5) /hpf Ur Squamous Epith Cells (0-4) /hpf Urine Mucus (None) /hpf Urine HCG, Qual Not Detected (Not Detectd) Coronavirus (PCR) (Not Detectd) Influenza Type A RNA (Not Detectd) Influenza Type B (PCR) (Not Detectd) 06/01/21 06/01/21 Range/Units 10:35 10:35 WBC (3.8-10.6) k/uL RBC (3.80-5.40) m/uL Hgb (11.4-16.0) gm/dL Hct (34.0-46.0) % MCV (80.0-100.0) fL MCH (25.0-35.0) pg MCHC (31.0-37.0) g/dL RDW (11.5-15.5) % Plt Count (150-450) k/uL MPV Neutrophils % % Lymphocytes % % Monocytes % % Eosinophils % % Basophils % % Neutrophils # (1.3-7.7) k/uL Lymphocytes # (1.0-4.8) k/uL Monocytes # (0-1.0) k/uL Eosinophils # (0-0.7) k/uL Basophils # (0-0.2) k/uL PT (9.0-12.0) sec INR (<1.2) APTT (22.0-30.0) sec Sodium (137-145) mmol/L Potassium (3.5-5.1) mmol/L Chloride (98-107) mmol/L Carbon Dioxide (22-30) mmol/L Anion Gap mmol/L BUN (7-17) mg/dL Creatinine (0.52-1.04) mg/dL Est GFR (CKD-EPI)AfAm (>60 ml/min/1.73 sqM) Est GFR (CKD-EPI)NonAf (>60 ml/min/1.73 sqM) Glucose (74-99) mg/dL Plasma Lactic Acid Jon[place] (0.7-2.0) mmol/L Calcium (8.4-10.2) mg/dL Total Bilirubin (0.2-1.3) mg/dL AST (14-36) U/L ALT (4-34) U/L Alkaline Phosphatase (38-126) U/L Total Protein (6.3-8.2) g/dL Albumin (3.5-5.0) g/dL Amylase (30-110) U/L Lipase (23-300) U/L Urine Color Urine Appearance (Clear) Urine pH (5.0-8.0) Ur Specific [place] (1.001-1.035) Urine Protein (Negative) Urine Glucose (UA) (Negative) Urine Ketones (Negative) Urine Blood (Negative) Urine Nitrite (Negative) Urine Bilirubin (Negative) Urine Urobilinogen (<2.0) mg/dL Ur Leukocyte Esterase (Negative) Urine RBC (0-5) /hpf Urine WBC (0-5) /hpf Ur Squamous Epith Cells (0-4) /hpf Urine Mucus (None) /hpf Urine HCG, Qual (Not Detectd) Coronavirus (PCR) Not Detected (Not Detectd) Influenza Type A RNA Not Detected (Not Detectd) Influenza Type B (PCR) Not Detected (Not Detectd) Disposition Clinical Impression: Abdominal pain Disposition: HOME SELF-CARE Instructions (If sedation given, give patient instructions): Abdominal Pain (ED) Additional Instructions: Please follow-up GI appointment next week. Please pick up worker her prescription for Zofran and uses directed. Follow up with her primary care provider next 1-2 days. Return to the emergency department with any new, worsening or concerning symptoms. Is patient prescribed a controlled substance at d/c from ED?: No Referrals: None,Stated [Primary Care Provider] - 1-2 days Brigid Taylor MD [STAFF PHYSICIAN] - 1-2 days Time of Disposition: 13:26
[2021-06-01 11:14] LABS: Basophils # (A) 0.1 k/uL (0-0.2); Basophils % (A) 1 %; Eosinophils % (A) 0 %; HCT 44.2 % (34.0-46.0); HGB 14.8 gm/dL (11.4-16.0); Lymphocytes # (A) 2.1 k/uL (1.0-4.8); Lymphocytes % (A) 18 %; MCH 28.9 pg (25.0-35.0); MCHC 33.5 g/dL (31.0-37.0); MCV 86.2 fL (80.0-100.0); Mean Platelet Volume 8.2; Monocytes # (A) 0.4 k/uL (0-1.0); Monocytes % (A) 3 %; Neutrophils % (A) 77 %; Platelet Count 376 k/uL (150-450); RBC 5.13 m/uL (3.80-5.40); RDW 11.9 % (11.5-15.5); WBC 11.6 k/uL (3.8-10.6)
[2021-06-01 11:25] LABS: ALT 76 U/L (4-34); AST 38 U/L (14-36); African American GFR (CKD) >90 (>60 ml/min/1.73 sqM); Albumin 4.9 g/dL (3.5-5.0); Alkaline Phosphatase 49 U/L (38-126); Amylase 64 U/L (30-110); Anion Gap 11 mmol/L; Blood Urea Nitrogen 8 mg/dL (7-17); Calcium 9.8 mg/dL (8.4-10.2); Carbon Dioxide 22 mmol/L (22-30); Chloride 104 mmol/L (98-107); Glucose 128 mg/dL (74-99); Lipase 138 U/L (23-300); Non-African American GFR(CKD) >90 (>60 ml/min/1.73 sqM); Sodium 137 mmol/L (137-145); Total Bilirubin 0.9 mg/dL (0.2-1.3)
[2021-06-01 11:36] LABS: Partial Thromboplastin Time 24.9 sec (22.0-30.0); Prothrombin Time 10.6 sec (9.0-12.0)
[2021-06-01 11:51] LABS: Appearance,Urine Cloudy (Clear); Bilirubin,Urine Negative (Negative); Blood,Urine Negative (Negative); Color,Urine Light Yellow; Glucose,Urine (UA) Negative (Negative); Ketones,Urine 1+ (Negative); Leukocyte Esterase,Urine Negative (Negative); Mucus,Urine Rare /hpf; Nitrite,Urine Negative (Negative); PH, Urine 7.5 (5.0-8.0); Protein,Urine Negative (Negative); RBC,Urine <1 /hpf (0-5); Specific Gravity,Urine 1.009 (1.001-1.035); Squamous Epithelial Cell,Urine 27 /hpf (0-4); Urobilinogen,Urine <2.0 mg/dL (<2.0); WBC,Urine <1 /hpf (0-5)
[2021-06-01] MEDS ORDERED: HYDROmorphone 0.5 MG/0.5 ML SYRINGE IVP STA (13:26)
[2021-06-01 14:19] VITALS: BP 118/79; PULSE 78; RESP 18; TEMP 98.8
== END 2021-06-01 14:38 | disposition home or self-care (01) ==
LOC: EC 09:10
DX: R10.84 Generalized abdominal pain (principal); R11.2 Nausea with vomiting, unspecified; Z20.822 Contact with and (suspected) exposure to COVID-19; F12.90 Cannabis use, unspecified, uncomplicated
CPT/HCPCS: 36415; 80053; 82150; 83605; 83690; 85025; 85610; 85730; 81001; 81025; 87502; 87635; 99284; 96374; 96375 ×3; 96361 ×2; J2270; J2405; C9113; J1170

== ENCOUNTER 2022-10-19 11:45 | Emergency (ER) | payer OTHER ==
--- NOTE | 2022-10-19 11:50 | ED ---
General Adult HPI - General Source: patient, RN notes reviewed Mode of arrival: ambulatory Limitations: no limitations <Koby Hong - Last Filed: 10/19/22 11:49> <Estefania Vital - Last Filed: 10/19/22 16:33> - General Stated complaint: Snycope, Vomiting Time Seen by Provider: 10/19/22 11:49 - History of Present Illness Initial comments: 27-year-old female presents emergency from via EMS for syncopal episode. Patient states she was donating plasma when she became very lightheaded, dizzy. Patient states she passed out. Patient states she cannot stop vomiting she states she still very dizzy EMS reported that her heart rate has been very labile, blood pressure was elevating. Patient denies any chest pain but states she just feels more palpitations. She did admit that she had a miscarriage a few weeks ago denies any significant bleeding (Koby Hong) Patient is a 27-year-old female is otherwise healthy presents emergency room with complaints of 2 syncopal episodes all donating plasma. Patient states this is the first time she has donated plasma and has never had any syncope from donating blood in the past. She was about 5 minutes into the donation when she had the syncopal episodes. She continues to have nausea and dizziness at this time. Patient denies any recent illnesses. She denies any recent cough, congestion, fevers, diarrhea or sick contacts. Patient had a miscarriage but 2 weeks ago that passed completely. She states that she had her hCG Quant levels tract back to normal levels. She's not had any recent heavy bleeding. She has some mild intermittent cramping but denies any significant pain or fevers. She occasionally smokes marijuana but denies any other drug use. She is a nonsmoker. Denies heavy alcohol use. Patient denies hitting her head or falling out of the chair. She denies any preceding symptoms such as chest pain, hemoptysis, shortness breath or other acute changes. (Estefania Vital) - Related Data Previous Rx's Medication Instructions Recorded Metoclopramide [Reglan] 10 mg PO Q8HR #15 tab 10/19/22 Allergies Allergy/AdvReac Type Severity Reaction Status Date / Time No Known Allergies Allergy Verified 10/19/22 13:30 Review of Systems ROS Other: All systems not noted in ROS Statement are negative. <Koby Hong - Last Filed: 10/19/22 11:49> ROS Other: All systems not noted in ROS Statement are negative. <Estefania Vital - Last Filed: 10/19/22 16:33> ROS Statement: Those systems with pertinent positive or pertinent negative responses have been documented in the HPI. Past Medical History Additional Past Medical History / Comment(s): gastritis History of Any Multi-Drug Resistant Organisms: None Reported Past Surgical History: Tonsillectomy Additional Past Surgical History / Comment(s): csection Past Anesthesia/Blood Transfusion Reactions: No Reported Reaction, Motion Sickness Additional Past Anesthesia/Blood Transfusion Reaction / Comment(s): no hx blood transfusion Past Psychological History: No Psychological Hx Reported Smoking Status: Never smoker Past Alcohol Use History: None Reported Past Drug Use History: Marijuana - Past Family History Mother Family Medical History: No Reported History <Koby Hong - Last Filed: 10/19/22 11:49> General Exam <Koby Hong - Last Filed: 10/19/22 11:49> General appearance: alert, in no apparent distress Eye exam: Present: normal appearance Neck exam: Present: normal inspection Respiratory exam: Present: normal lung sounds bilaterally Cardiovascular Exam: Present: regular rate, normal rhythm GI/Abdominal exam: Present: soft, other (No Palpation, no distention) Extremities exam: Present: full ROM Neurological exam: Present: alert, oriented X3 Skin exam: Present: warm, intact <Estefania Vital - Last Filed: 10/19/22 16:33> - General Exam Comments Initial Comments: Visual Physical Exam Vital signs reviewed General: Well-appearing, nontoxic, no acute distress. Head: Normocephalic, atraumatic Eyes: PERRLA, EOMI ENT: Airway patent Chest: Nonlabored breathing Skin: No visual rash, normal skin tone Neuro: Alert and oriented 3 Musculoskeletal: No gross abnormalities (Koby Hong) Course <Estefania Vital - Last Filed: 10/19/22 16:33> Vital Signs 10/19/22 10/19/22 10/19/22 11:52 13:24 13:34 Temperature 97.6 F 98.0 F 98.0 F Pulse Rate 69 67 82 Pulse Rate [ Gymnastics Coach ] Respiratory 18 18 18 Rate Blood Pressure 108/59 115/85 115/85 Blood Pressure [Left Arm Sitting] Blood Pressure [Left Arm Standing] Blood Pressure [Left Arm Supine] O2 Sat by Pulse 100 100 100 Oximetry 10/19/22 10/19/22 10/19/22 14:15 15:19 15:20 Temperature Pulse Rate 81 Pulse Rate [ 78 71 Gymnastics Coach ] Respiratory 17 18 18 Rate Blood Pressure 127/87 Blood Pressure 134/86 [Left Arm Sitting] Blood Pressure [Left Arm Standing] Blood Pressure 141/88 [Left Arm Supine] O2 Sat by Pulse 100 99 99 Oximetry 10/19/22 15:21 Temperature Pulse Rate Pulse Rate [ 71 Gymnastics Coach ] Respiratory 17 Rate Blood Pressure Blood Pressure [Left Arm Sitting] Blood Pressure 134/80 [Left Arm Standing] Blood Pressure [Left Arm Supine] O2 Sat by Pulse 99 Oximetry - Reevaluation(s) Reevaluation #1: 10/19/22 16:27 After multiple re-evaluations patient is feeling better at this time. She is is no longer nauseous and has stopped vomiting after the Reglan and IV fluids. Limited images of the patient. Discussed treatment plan and hydration. Discussed signs return to the emergency room. She understands and agrees to treatment and discharge plan. Of note patient has a history of leukocytosis secondary to episodes of vomiting in the past. (Estefania Vital) Medical Decision Making <Koby Hong - Last Filed: 10/19/22 11:49> - Lab Data Result diagrams: 10/19/22 12:23 10/19/22 12:23 <Estefania Vital - Last Filed: 10/19/22 16:33> - Medical Decision Making I performed a quick note portion of this chart signed Koby Hong PA-C (Koby Hong) Was pt. sent in by a medical professional or institution ([facility], DRYWALL TAPER HELPER, urgent care, hospital, or custodial...) When possible be specific @ -[No] Did you speak to anyone other than the patient for history (EMS, parent, family, police, friend...)? What history was obtained from this source @ -[No] Did you review nursing and triage notes (agree or disagree)? Why? @ -[I reviewed and agree with nursing and triage notes] Were old charts reviewed (outside hosp., previous admission, EMS record, old EKG, old radiological studies, urgent care reports/EKG's, custodial records)? Report findings @ -[No old charts were reviewed] Differential Diagnosis (chest pain, altered mental status, abdominal pain women, abdominal pain men, vaginal bleeding, weakness, fever, dyspnea, syncope, headache, dizziness, GI bleed, back pain, seizure, CVA, palpatations, mental health, musculoskeletal)? @ -Vasovagal syncope, dehydration, syncope, urinary tract infection, EKG interpreted by me (3pts min.). @ -[As above] X-rays interpreted by me (1pt min.). @ -No pneumonia, pneumothorax or other acute changes seen on x-ray results. CT interpreted by me (1pt min.). @ -[None done] U/S interpreted by me (1pt. min.). @ -[None done] What testing was considered but not performed or refused? (CT, X-rays, U/S, labs)? Why? @ -Of note patient was unable to tolerate those initially as she was very dizzy and it worsened when she sat up. She was given IV fluids and the Reglan and then was able to complete orthosis which were negative. What meds were considered but not given or refused? Why? @ -[None] Did you discuss the management of the patient with other professionals (professionals i.e. , PA, DRYWALL TAPER HELPER, lab, RT, psych nurse, social media sr strategy manager, forging dies final finisher, teacher, aoc airspace control officer, case aide)? Give summary @ -Symptoms are And management discussed with the ED physician Dr. Sewell today. Was smoking cessation discussed for >3mins.? @ -[No] Was critical care preformed (if so, how long)? @ -[No] Were there social determinants of health that impacted care today? How? (Homelessness, low income, unemployed, alcoholism, drug addiction, transportation, low edu. Level, literacy, decrease access to med. care, longterm, rehab)? @ -[No] Was there de-escalation of care discussed even if they declined (Discuss DNR or withdrawal of care, Hospice)? DNR status @ -[No] What co-morbidities impacted this encounter? (DM, HTN, Smoking, COPD, CAD, Cancer, CVA, ARF, Chemo, Hep., AIDS, mental health diagnosis, sleep apnea, morbid obesity)? @ -[None] Was patient admitted / discharged? Hospital course, mention meds given and route, prescriptions, significant lab abnormalities, going to OR and other pert inent info. @ -Patient will be discharged for outpatient management. There is no indication that hospitalization is required at this time. She is feeling better after IV fluids and Reglan. Undiagnosed new problem with uncertain prognosis? @ -[No] Drug Therapy requiring intensive monitoring for toxicity (Heparin, Nitro, Insulin, Cardizem)? @ -[No] Were any procedures done? @ -[No] Diagnosis/symptom? @ -Vasovagal syncope, vomiting, dizziness Acute, or Chronic, or Acute on Chronic? @ -Acute Uncomplicated (without systemic symptoms) or Complicated (systemic symptoms)? @ -[default] Side effects of treatment? @ -[No] Exacerbation, Progression, or Severe Exacerbation? @ -[No] Poses a threat to life or bodily function? How? (Chest pain, [place], [place], pneumonia, PE, COPD, DKA, ARF, appy, cholecystitis, CVA, Diverticulitis, Homicidal, Suicidal, threat to staff... and all critical care pts) @ -[No] (Estefania Vital) - Lab Data Lab Results 10/19/22 10/19/22 10/19/22 Range/Units 12:23 12:23 12:23 WBC 17.4 H (3.8-10.6) k/uL RBC 4.99 (3.80-5.40) m/uL Hgb 14.7 (11.4-16.0) gm/dL Hct 44.7 (34.0-46.0) % MCV 89.7 (80.0-100.0) fL MCH 29.5 (25.0-35.0) pg MCHC 32.9 (31.0-37.0) g/dL RDW 12.3 (11.5-15.5) % Plt Count 263 (150-450) k/uL MPV 8.8 Neutrophils % 80 % Lymphocytes % 15 % Monocytes % 3 % Eosinophils % 1 % Basophils % 0 % Neutrophils # 13.9 H (1.3-7.7) k/uL Lymphocytes # 2.6 (1.0-4.8) k/uL Monocytes # 0.6 (0-1.0) k/uL Eosinophils # 0.2 (0-0.7) k/uL Basophils # 0.0 (0-0.2) k/uL PT 10.8 (9.0-12.0) sec INR 1.0 (<1.2) APTT 23.8 (22.0-30.0) sec Sodium 136 L (137-145) mmol/L Potassium 4.1 (3.5-5.1) mmol/L Chloride 106 (98-107) mmol/L Carbon Dioxide 21 L (22-30) mmol/L Anion Gap 9 mmol/L BUN 9 (7-17) mg/dL Creatinine 0.62 (0.52-1.04) mg/dL Est GFR (CKD-EPI)AfAm >90 (>60 ml/min/1.73 sqM) Est GFR (CKD-EPI)NonAf >90 (>60 ml/min/1.73 sqM) Glucose 124 H (74-99) mg/dL Calcium 9.1 (8.4-10.2) mg/dL Magnesium 1.8 (1.6-2.3) mg/dL Total Bilirubin 0.5 (0.2-1.3) mg/dL AST 24 (14-36) U/L ALT 22 (4-34) U/L Alkaline Phosphatase 43 (38-126) U/L Troponin I (0.000-0.034) ng/mL Total Protein 6.9 (6.3-8.2) g/dL Albumin 4.2 (3.5-5.0) g/dL HCG, Quant mIU/mL Urine Color Urine Appearance (Clear) Urine pH (5.0-8.0) Ur Specific Bon[place] (1.001-1.035) Urine Protein (Negative) Urine Glucose (UA) (Negative) Urine Ketones (Negative) Urine Blood (Negative) Urine Nitrite (Negative) Urine Bilirubin (Negative) Urine Urobilinogen (<2.0) mg/dL Ur Leukocyte Esterase (Negative) 10/19/22 10/19/22 10/19/22 Range/Units 12:23 13:50 15:16 WBC (3.8-10.6) k/uL RBC (3.80-5.40) m/uL Hgb (11.4-16.0) gm/dL Hct (34.0-46.0) % MCV (80.0-100.0) fL MCH (25.0-35.0) pg MCHC (31.0-37.0) g/dL RDW (11.5-15.5) % Plt Count (150-450) k/uL MPV Neutrophils % % Lymphocytes % % Monocytes % % Eosinophils % % Basophils % % Neutrophils # (1.3-7.7) k/uL Lymphocytes # (1.0-4.8) k/uL Monocytes # (0-1.0) k/uL Eosinophils # (0-0.7) k/uL Basophils # (0-0.2) k/uL PT (9.0-12.0) sec INR (<1.2) APTT (22.0-30.0) sec Sodium (137-145) mmol/L Potassium (3.5-5.1) mmol/L Chloride (98-107) mmol/L Carbon Dioxide (22-30) mmol/L Anion Gap mmol/L BUN (7-17) mg/dL Creatinine (0.52-1.04) mg/dL Est GFR (CKD-EPI)AfAm (>60 ml/min/1.73 sqM) Est GFR (CKD-EPI)NonAf (>60 ml/min/1.73 sqM) Glucose (74-99) mg/dL Calcium (8.4-10.2) mg/dL Magnesium (1.6-2.3) mg/dL Total Bilirubin (0.2-1.3) mg/dL AST (14-36) U/L ALT (4-34) U/L Alkaline Phosphatase (38-126) U/L Troponin I <0.012 (0.000-0.034) ng/mL Total Protein (6.3-8.2) g/dL Albumin (3.5-5.0) g/dL HCG, Quant <2.4 mIU/mL Urine Color Colorless Urine Appearance Clear (Clear) Urine pH 7.0 (5.0-8.0) Ur Specific [place] 1.012 (1.001-1.035) Urine Protein Negative (Negative) Urine Glucose (UA) Negative (Negative) Urine Ketones Negative (Negative) Urine Blood Negative (Negative) Urine Nitrite Negative (Negative) Urine Bilirubin Negative (Negative) Urine Urobilinogen <2.0 (<2.0) mg/dL Ur Leukocyte Esterase Negative (Negative) Disposition <Koby Hong - Last Filed: 10/19/22 11:49> Is patient prescribed a controlled substance at d/c from ED?: No Time of Disposition: 16:32 <Estefania Vital - Last Filed: 10/19/22 16:33> Clinical Impression: Vomiting, Vasovagal syncope, Syncope, Leukocytosis Disposition: HOME SELF-CARE Condition: Good Instructions (If sedation given, give patient instructions): Syncope (ED), Metoclopramide (By mouth) Additional Instructions: Increase rest and hydration. Referrals: None,Stated [REFERRING] - 1-2 days
[2022-10-19 12:44] LABS: Basophils % (A) 0 %; Eosinophils # (A) 0.2 k/uL (0-0.7); Eosinophils % (A) 1 %; HCT 44.7 % (34.0-46.0); HGB 14.7 gm/dL (11.4-16.0); Lymphocytes # (A) 2.6 k/uL (1.0-4.8); Lymphocytes % (A) 15 %; MCH 29.5 pg (25.0-35.0); MCHC 32.9 g/dL (31.0-37.0); MCV 89.7 fL (80.0-100.0); Mean Platelet Volume 8.8; Monocytes # (A) 0.6 k/uL (0-1.0); Monocytes % (A) 3 %; Neutrophils # (A) 13.9 k/uL (1.3-7.7); Neutrophils % (A) 80 %; Platelet Count 263 k/uL (150-450); RBC 4.99 m/uL (3.80-5.40); RDW 12.3 % (11.5-15.5); WBC 17.4 k/uL (3.8-10.6)
[2022-10-19 12:54] LABS: ALT 22 U/L (4-34); AST 24 U/L (14-36); African American GFR (CKD) >90 (>60 ml/min/1.73 sqM); Albumin 4.2 g/dL (3.5-5.0); Alkaline Phosphatase 43 U/L (38-126); Anion Gap 9 mmol/L; Blood Urea Nitrogen 9 mg/dL (7-17); Calcium 9.1 mg/dL (8.4-10.2); Carbon Dioxide 21 mmol/L (22-30); Chloride 106 mmol/L (98-107); Glucose 124 mg/dL (74-99); Magnesium 1.8 mg/dL (1.6-2.3); Non-African American GFR(CKD) >90 (>60 ml/min/1.73 sqM); Partial Thromboplastin Time 23.8 sec (22.0-30.0); Potassium 4.1 mmol/L (3.5-5.1); Prothrombin Time 10.8 sec (9.0-12.0); Sodium 136 mmol/L (137-145); Total Bilirubin 0.5 mg/dL (0.2-1.3); Total Protein 6.9 g/dL (6.3-8.2)
[2022-10-19] MEDS ORDERED: SODIUM CHLORIDE 0.9% 1,000 ML IV ONE (13:53)
[2022-10-19] MEDS ORDERED: METOCLOPRAMIDE 5 MG/ML 2 ML VIAL IVP STA (13:53)
--- NOTE | 2022-10-19 15:07 | XR ---
EXAMINATION TYPE: XR chest 2V DATE OF EXAM: 10/19/2022 COMPARISON: NONE TECHNIQUE: PA and lateral views submitted. HISTORY: Syncope FINDINGS: The lungs are clear and there is no pneumothorax, pleural effusion, or focal pneumonia. Heart size normal and no overt failure. Osseous structures intact. Hyperinflation suggests COPD. Surgical clips in the abdomen. IMPRESSION: 1. No acute process.
[2022-10-19 15:34] LABS: Appearance,Urine Clear (Clear); Bilirubin,Urine Negative (Negative); Blood,Urine Negative (Negative); Color,Urine Colorless; Glucose,Urine (UA) Negative (Negative); Ketones,Urine Negative (Negative); Leukocyte Esterase,Urine Negative (Negative); Nitrite,Urine Negative (Negative); Protein,Urine Negative (Negative); Specific Gravity,Urine 1.012 (1.001-1.035); Urobilinogen,Urine <2.0 mg/dL (<2.0)
[2022-10-19 16:05] VITALS: BP 134/80
[2022-10-19 17:00] VITALS: PULSE 85; RESP 18; TEMP 97.8
== END 2022-10-19 17:21 | disposition home or self-care (01) ==
LOC: EC 11:45
DX: D72.829 Elevated white blood cell count, unspecified (principal); R55 Syncope and collapse; R11.10 Vomiting, unspecified; F12.90 Cannabis use, unspecified, uncomplicated
CPT/HCPCS: 36415; 93005; 80053; 83735; 84484; 85025; 85610; 85730; 81003; 84702; 71046; 99285; 96374; 96361; J2765

== ENCOUNTER 2023-04-18 18:30 | Outpatient (CLI) | payer OTHER ==
[2023-04-18 19:49] LABS: Appearance,Urine Clear (Clear); Bilirubin,Urine Negative (Negative); Blood,Urine Negative (Negative); Color,Urine Colorless; Glucose,Urine (UA) Negative (Negative); Ketones,Urine Negative (Negative); Leukocyte Esterase,Urine Negative (Negative); Nitrite,Urine Negative (Negative); PH, Urine 5.5 (5.0-8.0); Protein,Urine Negative (Negative); Specific Gravity,Urine 1.016 (1.001-1.035); Urobilinogen,Urine <2.0 mg/dL (<2.0)
[2023-04-19 01:37] VITALS: BP 130/79; PULSE 98; RESP 16; TEMP 98
--- NOTE | 2023-05-04 10:56 | P.MSEPDOC ---
Presenting Problems - Arrival Data Date of Arrival on Unit: 04/18/23 Time of Arrival on Unit: 18:30 Mode of Transport: Ambulatory - Complaint OB-Reason for Admission/Chief Complaint: Decreased Movement Comment: Dr Jimenez in department. updated pts reason for visit of constant low dull cramping last couple of days and no movement felt today. maternal VS WNL, fhr 150s, nst in progress baby audibly active but pt not feeling the movement. pt has had multiple BMs today ( normal for her) no urinary symptoms. order for UA obtained Medical History - Information : 5 Para: 1 Term: 1 : 0 Abortions: Spontaneous or Elective: 3 Number of Living Children: 1 - Gestational Age Gestational Age by MIKEL (wks/days): 28 Weeks and 1 Days - History Complications: Prior Review of Systems - Review of Systems Constitutional: No problems Breast: No problems ENT: No problems Cardiovascular: No problems Respiratory: No problems Gastrointestinal: No problems Genitourinary: No problems Musculoskeletal: No problems Neurological: No problems Skin: No problems Vital Signs - Temperature Temperature: 98.0 F Temperature Source: Oral - Pulse Right Pulse Rate: 98 Pulse Assessment Method: Automatic Cuff - Respirations Respiratory Rate: 16 Oxygen Delivery Method: Room Air O2 Sat by Pulse Oximetry: 98 - Blood Pressure Right Arm Blood Pressure: 130/79 Blood Pressure Mean: 96 Blood Pressure Source: Automatic Cuff Medical Screen Scoring - Uterine Contractions Frequency From (mins): 0 Frequency To (mins): 0 Duration From (seconds): 0 Duration To (seconds): 0 - Assessment - Baby A Baseline FHR: 140 Heart Rate - NICHD Category: Category I (Normal) NST: Reactive Physician Notification - Physician Notified Physician Notified Date: 04/18/23 Physician Notified Time: 20:20 Physician: Price Jimenez New Order Received: Yes - Notification Comment Comment: UA results reviewed and repoted to Dr Jimenez. Pt now feeling movement. Discharge order obtained Maternal Triage Index - Maternal Triage Index Presenting for scheduled procedure w/no complaint: No - Stat/Priority 1 Stat Priority 1: Yes Provider Notified: Price Jimenez Provider Notified Time: 19:00 Criteria Met for Priority 1: 28 weeks decreased movement Disposition - Disposition OB Disposition: Discharge to home Discharge Date: 04/19/23 Discharge Time: 20:25 I agree with the RN Medical Screening Exam: Yes Physician's MSE Comment: I have neither seen nor examined the patient. Case reviewed; plan agreed upon as documented in EMR&OBIX.: Yes Diagnosis: CHOLERA DUE TO VIBRIO CHOLERAE 01, BIOVAR CHOLERAE
== END 2023-04-18 20:25 ==
LOC: FBPOP 18:30
PROVIDERS: ATTEND Obstetrics & Gynecology
DX: O36.8131 Decreased fetal movements, third trimester, fetus 1 (principal); O99.891 Other specified diseases and conditions complicating pregnancy; A00.0 Cholera due to Vibrio cholerae 01, biovar cholerae; O99.333 Smoking (tobacco) complicating pregnancy, third trimester; F17.200 Nicotine dependence, unspecified, uncomplicated; Z3A.28 28 weeks gestation of pregnancy
CPT/HCPCS: 59025; 81003; 99213

== ENCOUNTER 2023-07-03 16:53 | Inpatient (IN) | payer OTHER ==
[2023-07-03] MEDS ORDERED: METHYLERGONOVINE 0.2 MG/ML 1 ML AMP IM PRN (17:28)
[2023-07-03] MEDS ORDERED: miSOPROStoL 200 MCG TAB PO PRN (17:28)
[2023-07-03] MEDS ORDERED: TRANEXAMIC 1,000 MG/100ML-NACL 1,000 MG in EMPTY BAG 1 BAG IV PRN (17:28)
[2023-07-03] MEDS ORDERED: OXYTOCIN 10 UNIT/ML 1 ML VIAL IM PRN (17:28)
[2023-07-03] MEDS ORDERED: TERBUTALINE 1 MG/ML VIAL SQ PRN (17:28)
[2023-07-03] MEDS ORDERED: LIDOCAINE 0.5% (PF) 5 MG/ML (50 ML SDV) SQ PRN (17:28)
[2023-07-03] MEDS ORDERED: CARBOPROST TROMETHAMINE 250 MCG/ML 1 ML AMP IM PRN (17:28)
[2023-07-03] MEDS: OXYTOCIN 30 UNITS/500 ML NS 30 UNIT in SALINE 1 500ML.BAG IV SCH (18:04)
[2023-07-03] MEDS: LACTATED RINGERS 1,000 ML IV SCH (18:05)
--- NOTE | 2023-07-03 18:07 | P.HPOB ---
History of Present Illness H&P Date: 07/03/23 Chief Complaint: elective induction of labor, TOLAC Ms. Young is a 28 year old at 38 weeks and 6 days with EDC of 07/11/2023 by 9 week who presents for cervical ripening for elective induction of labor tomorrow. The patient will be TOLACing as she has a history of 1 full-term section for arrest of dilation. The patient only made it to 2cm and thinks she was never fully in labor. We have reviewed the ~1% risk of uterine rupture with IOL while on oxytocin with her history of 1 lower uterine segment scar. She understands these risks and desires to proceed with induction. Her has otherwise been complicated by paroxysmal tachycardia and lighth eadedness throughout the third trimester. Her PCP did a holter monitor for 1 week and noted sinus tachycardia without any arrythmias. The fetus is measuring in the 54%ile based on a 32 week growth US. work-up: blood type A positive, antibody negative, rubella immune, VDRL non-reactive, HBsAg negative, HIV negative, HCV Ab non-reactive, gonorrhea negative, chlamydia negative, 1 hour GTT 154 > 3 hour GTT wnl, GBS negative. s/p TDap in 3rd trimester. Past Medical History Past Medical History: No Reported History Additional Past Medical History / Comment(s): gastritis History of Any Multi-Drug Resistant Organisms: None Reported Past Surgical History: Cholecystectomy, Tonsillectomy Additional Past Surgical History / Comment(s): csection Past Anesthesia/Blood Transfusion Reactions: No Reported Reaction, Motion Sickness Additional Past Anesthesia/Blood Transfusion Reaction / Comment(s): no hx blood transfusion Past Psychological History: No Psychological Hx Reported Smoking Status: Never smoker Past Alcohol Use History: None Reported Past Drug Use History: None Reported - Past Family History Mother Family Medical History: No Reported History Medications and Allergies Home Medications Medication Instructions Recorded Confirmed Type Vit No.179/Iron/Folic 1 each PO DAILY 07/02/23 07/03/23 History [ Tablet] Allergies Allergy/AdvReac Type Severity Reaction Status Date / Time No Known Allergies Allergy Verified 07/03/23 17:28 Exam Vital Signs Temp Pulse Resp BP Pulse Ox 07/03/23 17:26 98.0 F 87 16 130/73 97 Intake and Output 07/03/23 07/03/23 07/03/23 06:59 14:59 22:59 Other: Weight 108.862 kg Focused physical exam is performed. This is a healthy-appearing in no apparent distress. Breathing is non-labored. Abdomen is gravid and non-tender. Cervical exam is 2 cm, 70 effacement, -3 station. Cooks catheter is placed with 60cc in each balloon. The patient tolerated this well. Extremities non-tender and non-edematous. heart tones are Category I and tocometer is graphing rare contractions. Assessment and Plan Assessment: 28 year old at 38 weeks and 6 days presenting for elective IOL and TOLAC Plan: Admit, clear liquid diet overnight, cooks catheter 12 x hours with low-dose pitocin. IV nubain prn overnight for pain. In the AM, plan for pitocin per protocol and AROM. Pt eventually plans on epidural. Continuous EFM and tocometer. Close monitoring of patient. Plan reviewed with the patient and her partner. All questions answered.
[2023-07-03 18:23] LABS: Basophils % (A) 0 %; Eosinophils # (A) 0.1 k/uL (0-0.7); Eosinophils % (A) 1 %; HCT 36.9 % (34.0-46.0); HGB 12.2 gm/dL (11.4-16.0); Lymphocytes # (A) 1.8 k/uL (1.0-4.8); Lymphocytes % (A) 18 %; MCH 29.6 pg (25.0-35.0); MCHC 33.1 g/dL (31.0-37.0); MCV 89.6 fL (80.0-100.0); Mean Platelet Volume 9.4; Monocytes # (A) 0.5 k/uL (0-1.0); Monocytes % (A) 4 %; Neutrophils # (A) 7.7 k/uL (1.3-7.7); Neutrophils % (A) 75 %; Platelet Count 247 k/uL (150-450); RBC 4.12 m/uL (3.80-5.40); RDW 12.8 % (11.5-15.5); WBC 10.1 k/uL (3.8-10.6)
[2023-07-03] MEDS: NALBUPHINE 10 MG/ML (10 ML MDV) IV PRN (21:21)
[2023-07-03] MEDS: CALCIUM CARBONATE 500 MG CHEWABLE PO PRN (22:16)
[2023-07-04] MEDS: ONDANSETRON 4 MG/2 ML VIAL IVP PRN (01:46)
[2023-07-04] MEDS ORDERED: SODIUM CHLORIDE 0.9% 250 ML BAG ONE (09:41)
[2023-07-04] MEDS ORDERED: fentaNYL (PF) 50 MCG/ML 5 ML AMP ONE (09:41)
[2023-07-04] MEDS ORDERED: ROPIVACAINE 5 MG/ML 30 ML VIAL ONE (09:41)
[2023-07-04] MEDS: METOCLOPRAMIDE 5 MG/ML 2 ML VIAL IVP STA (18:22)
[2023-07-04] MEDS ORDERED: BENZOCAINE/MENTHOL SPRAY 1 GM/SPRAY AEROSOL TOPICAL PRN (22:32)
[2023-07-04] MEDS ORDERED: diphenhydrAMINE 25 MG CAP PO PRN (22:32)
[2023-07-04] MEDS ORDERED: ZOLPIDEM 5 MG TAB PO PRN (22:32)
[2023-07-04] MEDS ORDERED: SIMETHICONE 80 MG CHEWABLE PO PRN (22:32)
[2023-07-04] MEDS ORDERED: diphenhydrAMINE 50 MG CAP PO PRN (22:32)
[2023-07-04] MEDS ORDERED: LANOLIN CREAM 1 GM TUBE TOPICAL PRN (22:32)
[2023-07-04] MEDS ORDERED: diphenhydrAMINE 50 MG/ML 1 ML VIAL IVP PRN ×2 (22:32)
[2023-07-04] MEDS ORDERED: HYDROCORTISONE 2.5% RECTAL CREAM 30 GM TUBE RECTAL PRN (22:32)
--- NOTE | 2023-07-04 22:32 | P.PROBDLV ---
Vaginal Delivery Note - . Vaginal Delivery Note: DATE OF SERVICE: 07/04/2023 PROCEDURE: Normal Vaginal Delivery ATTENDING: Dr. Tana Buck MD ESTIMATED BLOOD LOSS: 50 mL FINDINGS: VFI, Apgars 7/9. Weight 7 pounds and 11 ounces (3505 grams) PROCEDURE: Ms. Yougn is a 28 year old at 39 weeks presenting to labor and delivery for elective induction of labor and TOLAC. The has been complicated by maternal tachycardia and postural hypotension. For further details, please review the admitting H&P. A cooks catheter was placed yesterday for cervical ripening. This fell out after approximately 10 hours. Pitocin was titrated per protocol. The patient received epidural anesthesia per her request. The patient was completely dilated at 2100. The patient pushed effectively with Category II heart tones. A viable female was delivered at 2218 over an intact perineum. The was placed on the maternal abdomen and bulb suctioned. The infant was noted to be spontaneously crying. Cord was clamped and cut after a 30-second delay. The was handed off to the pediatric team. Char aleman was delivered whole with gentle cord traction at 222. Oxytocin was started to facilitate uterine tone. Uterine fundus was found to be firm and below the umbilicus upon fundal massage. Thorough examination of the cervix, vagina, periurethral area, and perineum revealed no lacerations. The patient is stable and allowed to begin the bonding process.
[2023-07-05] MEDS: ACETAMINOPHEN TAB 325 MG TAB PO PRN (03:53)
[2023-07-05 05:28] LABS: Basophils % (A) 0 %; Eosinophils % (A) 0 %; HCT 34.2 % (34.0-46.0); HGB 11.4 gm/dL (11.4-16.0); Lymphocytes # (A) 1.6 k/uL (1.0-4.8); Lymphocytes % (A) 8 %; MCH 29.9 pg (25.0-35.0); MCHC 33.3 g/dL (31.0-37.0); MCV 89.7 fL (80.0-100.0); Mean Platelet Volume 10.3; Monocytes # (A) 0.9 k/uL (0-1.0); Monocytes % (A) 5 %; Neutrophils # (A) 16.4 k/uL (1.3-7.7); Neutrophils % (A) 86 %; Platelet Count 223 k/uL (150-450); RBC 3.81 m/uL (3.80-5.40); RDW 12.8 % (11.5-15.5); WBC 19.1 k/uL (3.8-10.6)
[2023-07-05] MEDS: IBUPROFEN 600 MG TAB PO PRN (07:59)
[2023-07-05] MEDS: SENNOSIDES-DOCUSATE SODIUM 1 EACH TAB PO SCH (07:59)
--- NOTE | 2023-07-05 08:48 | P.DS ---
Providers Date of admission: 07/03/23 16:53 Expected date of discharge: 07/05/23 Attending physician: Tana Buck MD Primary care physician: [facility] Course: Ms. Young is a 28 year old now PPD#1 s/p after elective induction at 39 weeks. Her deliver and course have been uncomplicated. The patient is doing well this morning and had no acute events overnight. She has no complaints this morning. She reports minimal lochia, passing flatus, voiding without difficulty, ambulating, and eating/drinking without nausea or vomiting. doing well at bedside, they are formula feeding. She denies chest pain, shortness of breathing, fevers, or chills overnight. She denies pain or swelling in the legs. restrictions are reviewed with the patient including pelvic rest for 6 weeks. The patient is encouraged to call the office if she experiences any heavy bleeding, foul-smelling discharge, breast complaints, or any if she has any other concerns. She will follow up in the office with in 6 weeks for exam. All questions are answered. Assessment: 28 year old now PPD#1 s/p Patient Condition at Discharge: Good Plan - Discharge Summary New Discharge Prescriptions: No Action Vit No.179/Iron/Folic [ Tablet] 1 each PO DAILY Discharge Medication List Vit No.179/Iron/Folic [ Tablet] 1 each PO DAILY 07/02/23 [History] Follow up Appointment(s)/Referral(s): Tana Buck MD [STAFF PHYSICIAN] - 08/16/23 1:30 pm Activity/Diet/Wound Care/Special Instructions: Instructions 1. Do not begin any exercise program for 3 weeks. 2. Do not resume sexual relations for 6 weeks or longer if uncomfortable. 3. You may take tub baths or showers at any time. 4. You may use tampons if desired after 6 weeks. 5. Keep any areas repaired with stitches clean and dry. 6. If you are not nursing, wear a good fitting, supportive bra during the day and limit fluid intake for at least 1 week to prevent breast engorgement. 7. Call the office, , within the next week to make appointment for your 6 week checkup if it has not already been made. 8. Report any of the following occurrences to the doctor promptly: a. Heavy, excessive bleeding b. Chills, fever c. Burning or frequency of urination d. Pain or redness and breasts if nursing e. Increasing pain or swelling of vulva (stitches). In addition to the above instructions, the following additional should be followed: 1. No heavy lifting or straining (exercising) until after 6 week checkup. 2. Keep abdominal incision clean and dry: You may wear a dressing if more comfortable. 3. Make office appointment for 2 weeks after delivery date. Discharge Disposition: HOME SELF-CARE
[2023-07-05 16:33] VITALS: RESP 16; TEMP 98.4
[2023-07-05 22:37] VITALS: BP 114/78; PULSE 65
== END 2023-07-05 23:09 | disposition home or self-care (01) | DRG 807 ==
LOC: 4FBP 16:53
PROVIDERS: ADMIT Obstetrics & Gynecology; ATTEND Obstetrics & Gynecology
PROC: 10E0XZZ Delivery of Products of Conception, External Approach (ICD-10-PCS; principal; 2023-07-04)
PROC: 4A1HX4Z Monitoring of Products of Conception, Cardiac Electrical Activity, External Approach (ICD-10-PCS; 2023-07-04)
PROC: 3E0P7VZ Introduction of Hormone into Female Reproductive, Via Natural or Artificial Opening (ICD-10-PCS; 2023-07-04)
PROC: 3E033VJ Introduction of Other Hormone into Peripheral Vein, Percutaneous Approach (ICD-10-PCS; 2023-07-04)
DX: O99.42 Diseases of the circulatory system complicating childbirth (principal); Z37.0 Single live birth; I47.9 Paroxysmal tachycardia, unspecified; I95.1 Orthostatic hypotension; O34.219 Maternal care for unspecified type scar from previous cesarean delivery; Z3A.39 39 weeks gestation of pregnancy; Z87.59 Personal history of other complications of pregnancy, childbirth and the puerperium
CPT/HCPCS: 85025; 86850; 86900; 86901